=== PATIENT | male | born 1995 | race Two or more races ===

== ENCOUNTER 2020-05-07 14:30 | Emergency (ER) | payer SELFPAY ==
[~2020-05-07] VITALS: Ht 170.2 cm; Wt 77.3 kg
[2020-05-07 14:40] VITALS: BP 160/80
--- NOTE | 2020-05-07 15:23 | RAD ---
CHEST PA LATERAL History: Reason: laceration, right side pain / Spl. Instructions: / History: Comparison: None. Findings: Low lung volumes. No consolidation or pleural effusion. No pneumothorax. Normal heart size. Impression: 1. No acute cardiopulmonary process. Electronically signed by: Denver Salvador DO (05/07/2020 3:20 PM) [id number]
--- NOTE | 2020-05-07 15:37 | PHYS DOC ---
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 This caused a laceration to the right chest above the nipple. Bleeding is controlled. Patient will need a tetanus shot. Patient rates his burning pain 9 out of 10. He denies any past medical history. Takes no medications daily. Review of Systems: Review of Systems: Constitutional: Denies fever or chills. [] Eyes: Denies change in visual acuity. [] HENT: Denies nasal congestion or sore throat. [] Respiratory: Denies cough or shortness of breath. [] Cardiovascular: Right chest pain with laceration or edema. [] GI: Denies abdominal pain, nausea, vomiting, bloody stools or diarrhea. [] : Denies dysuria. [] Musculoskeletal: Denies back pain or joint pain. [] Integument: Denies rash. Laceration right chest. [] Neurologic: Denies headache, focal weakness or sensory changes. [] Endocrine: Denies polyuria or polydipsia. [] Lymphatic: Denies swollen glands. [] Psychiatric: Denies depression or anxiety. [] Heart Score: Risk Factors: Risk Factors: DM, Current or recent (<one month) smoker, HTN, HLP, family history of CAD, obesity. Risk Scores: Score 0 - 3: 2.5% MACE over next 6 weeks - Discharge Home Score 4 - 6: 20.3% MACE over next 6 weeks - Admit for Clinical Observation Score 7 - 10: 72.7% MACE over next 6 weeks - Early Invasive Strategies Physical Exam: PE: Constitutional: Well developed, well nourished, no acute distress, non-toxic appearance. [] HENT: Normocephalic, atraumatic, bilateral external ears normal, oropharynx m oist, no oral exudates, nose normal. [] Eyes: PERRLA, EOMI, conjunctiva normal, no discharge. [] Neck: Normal range of motion, no tenderness, supple, no stridor. [] Cardiovascular:Heart rate regular rhythm, no murmur [] Lungs & Thorax: Bilateral breath sounds clear to auscultation [] Abdomen: Bowel sounds normal, soft, no tenderness, no masses, no pulsatile masses. [] Skin: Warm, dry, no erythema, no rash. Right chest laceration [] Back: No tenderness, no CVA tenderness. [] Extremities: No tenderness, no cyanosis, no clubbing, ROM intact, no edema. [] Neurologic: Alert and oriented X 3, normal motor function, normal sensory function, no focal deficits noted. [] Psychologic: Affect normal, judgement normal, mood normal. [] Current Patient Data: Vital Signs: Vital Signs Date Time Temp Pulse Resp B/P (MAP) Pulse Ox O2 Delivery O2 Flow Rate FiO2 05/07/20 14:40 98.4 87 13 160/80 (106) 97 Room Air 98.4 EKG: EKG: [] Radiology/Procedures: Radiology/Procedures: [] Impression: [id number] [place] [address] IMAGING REPORT Signed PATIENT: JAIRO BARRY ACCOUNT: [id number] : 1995 LOCATION: ER AGE: 25 SEX: M EXAM STATUS: PRE ER ORD. PHYSICIAN: RASHEL SOTO APRN REASON: laceration, right side pain PROCEDURE: CHEST PA & LATERAL CHEST PA LATERAL History: Reason: laceration, right side pain / Spl. Instructions: / History: Comparison: None. Findings: Low lung volumes. No consolidation or pleural effusion. No pneumothorax. Normal heart size. Impression: 1. No acute cardiopulmonary process. Electronically signed by: Asad Young DO (05/07/2020 3:20 PM) [id number] DICTATED and SIGNED BY: ASAD YOUNG DO DATE: 05/07/20 152 Course & Med Decision Making: Course & Med Decision Making Pertinent Labs and Imaging studies reviewed. (See chart for details) See HPI. Laceration repair Location: Right chest Local anesthesia: 1% Lidocaine Interrupted sutures/Internal sutures: 15 stitches 4-0 Nerve/ligament/muscle damage: none Cleaning and irrigation: Saline and Chlorhexidine The appropriate timeout was taken. The area was prepped and draped in the usual sterile fashion. The wound was copiously irrigated with normal saline and chlorhexidine. Patient tolerated well without complication. Dressing was appli ed to the area follow-up education is given to observe for signs and symptoms of infection, bleeding and to follow-up promptly if these occur. Patient can return in 48 hours for a wound recheck. Sutures to be removed in 7 to 10 days. [] Dragon Disclaimer: Dragon Disclaimer: This electronic medical record was generated, in whole or in part, using a voice recognition dictation system. Departure Departure Impression: Primary Impression: Laceration Disposition: HOME, SELF-CARE Condition: STABLE Patient Instructions: Laceration Care, Adult Additional Instructions: Return in 10 days for suture removal. Keep clean and covered. Wash with soap and water. Watch for signs of infection such as swelling, redness, pain or drainage. Take Ibuprofen for pain. Justicifation of Admission Dx: Justifications for Admission: Justification of Admission Dx: N/A RASHEL SOTO APRN May 07, 2020 15:37
[2020-05-07] MEDS ORDERED: LIDOCAINE 1% PF 30 ML VIAL. INJ ONE (15:45)
[2020-05-07] MEDS ORDERED: DIPH,PERTUSS(ACELL),TET VAC/PF 0.5 ML SYRINGE. VAX IM ONE (15:45)
== END 2020-05-07 17:18 | disposition home or self-care (01) ==
LOC: ER 14:30
DX: S21.111A Laceration without foreign body of right front wall of thorax without penetration into thoracic cavity, initial encounter (principal); R07.89 Other chest pain; Z87.891 Personal history of nicotine dependence; Z98.890 Other specified postprocedural states; X50.9XXA Other and unspecified overexertion or strenuous movements or postures, initial encounter; Y93.89 Activity, other specified; Y92.89 Other specified places as the place of occurrence of the external cause; Y99.8 Other external cause status
CPT/HCPCS: 12001; 71046; 90471; 90715; 99283; J3490